=== PATIENT | female | born 1995 | race Caucasian/White ===

== ENCOUNTER 2017-03-22 20:19 | Emergency (ER) | payer OTHER ==
[~2017-03-22] VITALS: Ht 160 cm; Wt 67.7 kg
[2017-03-22 20:23] VITALS: BP 121/64; TEMP 98.7
[2017-03-22] MEDS ORDERED: PRENATAL PO (20:26)
[2017-03-22 21:59] VITALS: PULSE 84
== END 2017-03-22 21:59 | disposition home or self-care (01) ==
LOC: COL.ER 20:19
DX: O46.92 Antepartum hemorrhage, unspecified, second trimester (principal); Z3A.21 21 weeks gestation of pregnancy; Z86.79 Personal history of other diseases of the circulatory system; Z98.890 Other specified postprocedural states